=== PATIENT | female | born 1980 | race Caucasian/White ===

== ENCOUNTER 2016-08-27 07:09 | Day surgery (SDC) | payer MEDICAID ==
[~2016-08-27] VITALS: Ht 161.9 cm; Wt 83.0 kg
[~2016-08-27 07:09] MED LIST: CYMBALTA30 MG PO; NORCO 325-5 MG1 TAB PO; XANAX XR0.5 MG PO; XANAX0.5 MG PO
== END 2016-08-27 12:10 | disposition short-term general hospital (02) ==
LOC: SURGOP 07:09
PROC: 0LBQ0ZZ Excision of Right Knee Tendon, Open Approach (ICD-10-PCS; principal; 2016-08-27)
DX: M76.51 Patellar tendinitis, right knee (principal); E66.9 Obesity, unspecified; F41.9 Anxiety disorder, unspecified; Z68.31 Body mass index [BMI] 31.0-31.9, adult; Z88.0 Allergy status to penicillin; Z88.8 Allergy status to other drugs, medicaments and biological substances; Z79.2 Long term (current) use of antibiotics; Z79.899 Other long term (current) drug therapy; Z90.49 Acquired absence of other specified parts of digestive tract; Z90.710 Acquired absence of both cervix and uterus; Z90.89 Acquired absence of other organs; Z98.890 Other specified postprocedural states
CPT/HCPCS: J1100; J1885; J2250; J2405; J2765; J3010

== ENCOUNTER → 2016-09-10 | Outpatient (CLI) | payer MEDICAID ==
[~2016-09-10] MED LIST changes: +CYMBALTA60 MG PO
== END | disposition short-term general hospital (02) ==
LOC: CLORTH 12:19
DX: Z47.89 Encounter for other orthopedic aftercare (principal)

== ENCOUNTER → 2016-10-08 | Outpatient (CLI) | payer MEDICAID | END | disposition short-term general hospital (02) | LOC: CLORTH | DX: Z47.89 Encounter for other orthopedic aftercare (principal) ==

== ENCOUNTER → 2016-10-22 | Outpatient (CLI) | payer MEDICAID | END | disposition short-term general hospital (02) | LOC: CLORTH 13:39 | DX: Z47.89 Encounter for other orthopedic aftercare (principal); M25.561 Pain in right knee ==

== ENCOUNTER → 2016-11-19 | Outpatient (CLI) | payer MEDICAID | END | disposition short-term general hospital (02) | LOC: CLORTH 03:39 | DX: Z47.89 Encounter for other orthopedic aftercare (principal) ==

== ENCOUNTER 2016-11-26 07:22 | Emergency (ER) | payer MEDICAID ==
[~2016-11-26] VITALS: Ht 160 cm; Wt 77.1 kg
[~2016-11-26 07:22] MED LIST changes: -CYMBALTA60 MG PO
[2016-11-26] MEDS ORDERED: CYMBALTA60 MG PO (07:35)
== END 2016-11-26 09:00 | disposition short-term general hospital (02) ==
LOC: ER 07:22
DX: R10.9 Unspecified abdominal pain (principal); F41.9 Anxiety disorder, unspecified; Z87.442 Personal history of urinary calculi; Z87.440 Personal history of urinary (tract) infections; Z79.899 Other long term (current) drug therapy; Z88.0 Allergy status to penicillin; Z88.1 Allergy status to other antibiotic agents
CPT/HCPCS: J1885; J2405